=== PATIENT | female | born 1970 | race Caucasian/White ===

== ENCOUNTER 2020-07-18 15:11 | Emergency (ER) | payer BC ==
[2020-07-18] MEDS ORDERED: Cyclobenzaprine 10 MG Tab PO ONE (15:35)
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
[2020-07-18] MEDS ORDERED: Naproxen 250 MG Tab PO ONE (15:45)
[2020-07-18] MEDS ORDERED: Acetaminophen/HYDROcodone 325-5 MG Tab PO ONE (16:17)
[2020-07-18] MEDS ORDERED: Ondansetron 4 MG Tab.DIS PO ONE (16:17)
--- NOTE | 2020-07-20 10:04 | CR ---
CHEST: 2 view CLINICAL HISTORY:Fall COMPARISON:None FINDINGS: The heart is enlarged. Pulmonary vascular is normal. No infiltrate effusion or pneumothorax is seen. There is separation at the right AC joint Impression: No acute pulmonary process Right before meals separation
--- NOTE | 2020-07-20 10:06 | CR ---
Clavicle Rt CLINICAL HISTORY: Injury FINDINGS: There is a separation at the right AC joint of approximately 8 mm. There is a fracture of the right second rib which is likely acute.Glenohumeral joint appears intact. IMPRESSION: AC joint separation Nondisplaced fracture of the right second rib posteriorly
== END 2020-07-18 17:43 | disposition home or self-care (01) ==
LOC: EDSEX 15:11 → JP.ED 15:11
DX: S22.41XA Multiple fractures of ribs, right side, initial encounter for closed fracture (principal); S43.101A Unspecified dislocation of right acromioclavicular joint, initial encounter; S00.83XA Contusion of other part of head, initial encounter; V86.59XA Driver of other special all-terrain or other off-road motor vehicle injured in nontraffic accident, initial encounter
CPT/HCPCS: 71046; 73000; 99283; A9270